=== PATIENT | male | born 1995 | race Two or more races ===

== ENCOUNTER 2018-05-20 09:48 | Emergency (ER) | payer OTHER ==
[~2018-05-20] VITALS: Ht 162.6 cm; Wt 71.0 kg
[~2018-05-20 09:48] MED LIST: IBUP400T18 PO
[2018-05-20 10:02] VITALS: BP 127/76
--- NOTE | 2018-05-20 10:25 | RAD ---
EXAM: AP, oblique and lateral views of the right knee DATE: 05/20/2018 10:09 AM INDICATION: Right knee pain x 1 day, twisted when kicking door, pt shielded COMPARISON: No Prior FINDINGS: No evidence of acute fracture or dislocation. Joint spaces are preserved without significant degenerative/proliferative change. No knee joint effusion. IMPRESSION: No evidence of acute fracture or dislocation. Electronically signed by: Hussein Delgado MD (05/20/2018 10:21 AM) [facility]
[2018-05-20] MEDS ORDERED: IBUP600T16 PO (10:34)
--- NOTE | 2018-05-20 10:34 | PHYS DOC ---
Past History Past Medical History: No Pertinent History Past Surgical History: No Surgical History Alcohol Use: Occasionally Drug Use: None Adult General Chief Complaint Chief Complaint: KNEE INJURY [facility] HPI Patient is a 22 year old male who presents with complaining of right knee pain. Patient states he tried to open a heavy metal door with his leg and felt a pop in his knee while he was at work this morning. Patient complaining of moderate pain in right knee that getting worse with bearing weight when standing up. Patient denies focal neurodeficit and other injuries. Review of Systems Review of Systems Constitutional: Denies fever or chills [] Eyes: Denies change in visual acuity, redness, or eye pain [] HENT: Denies nasal congestion or sore throat [] Respiratory: Denies cough or shortness of breath [] Cardiovascular: No additional information not addressed in HPI [] GI: Denies abdominal pain, nausea, vomiting, bloody stools or diarrhea [] : Denies dysuria or hematuria [] Musculoskeletal: Denies back pain, reports joint pain [] Integument: Denies rash or skin lesions [] Neurologic: Denies headache, focal weakness or sensory changes [] Endocrine: Denies polyuria or polydipsia [] All other systems were reviewed and found to be within normal limits, except as documented in this note. Allergies Allergies Allergies Coded Allergies Type Severity Reaction Last Updated Verified No Known Drug Allergies 03/03/16 No Physical Exam Physical Exam Constitutional: Well developed, well nourished, mild distress, non-toxic appearance. [] HENT: Normocephalic, atraumatic Eyes: PERRLA, EOMI, conjunctiva normal, no discharge. [] Neck: Normal range of motion, no tenderness, supple, no stridor. [] Cardiovascular:Heart rate regular rhythm, no murmur [] Lungs & Thorax: Bilateral breath sounds clear to auscultation [] Skin: Warm, dry, no erythema, no rash. [] Back: No tenderness, no CVA tenderness. [] Extremities: Right knee without deformity or edema or erythema, painful range of motion, no neurovascular deficit. Neurologic: Alert and oriented X 3, normal motor function, normal sensory function, no focal deficits noted. [] Psychologic: Affect normal, judgement normal, mood normal. [] Current Patient Data Vital Signs Vital Signs Date Time Temp Pulse Resp B/P (MAP) Pulse Ox O2 Delivery O2 Flow Rate FiO2 05/20/18 10:02 98.0 79 20 96 Room Air EKG EKG [] Radiology/Procedures Radiology/Procedures [address] [address] IMAGING REPORT Signed PATIENT: TRAY LAI ACCOUNT: [id number] : 1995 LOCATION: ER AGE: 22 SEX: M EXAM STATUS: PRE ER ORD. PHYSICIAN: TIERRA DELGADO MD REASON: injury PROCEDURE: KNEE RIGHT 3V EXAM: AP, oblique and lateral views of the right knee DATE: 05/20/2018 10:09 AM INDICATION: Right knee pain x 1 day, twisted when kicking door, pt shielded COMPARISON: No Prior FINDINGS: No evidence of acute fracture or dislocation. Joint spaces are preserved without significant degenerative/proliferative change. No knee joint effusion. IMPRESSION: No evidence of acute fracture or dislocation. Electronically signed by: Hussein Delgado MD (05/20/2018 10:21 AM) [facility] DICTATED AND SIGNED BY: HUSSEIN DELGADO MD DATE: 05/20/18 1019 CC: TIERRA DELGADO MD; PCP,NO ~ Course & Med Decision Making Course & Med Decision Making Pertinent Imaging studies reviewed. (See chart for details) Evaluation of patient in ER showed 22-year-old male patient with injury to right knee with unremarkable physical exam and x-ray. Plan discharge patient home with diagnosis of right knee sprain. Dragon Disclaimer Dragon Disclaimer This electronic medical record was generated, in whole or in part, using a voice recognition dictation system. Departure Departure: Impression: Primary Impression: Right knee sprain Disposition: HOME, SELF-CARE (at 1028) Condition: STABLE Referrals: PCP,DEAN (PCP) Patient Instructions: Knee Sprain Additional Instructions: Apply ice on the affected area Follow-up with your primary care physician in 3-5 days Return to ER if not getting better Scripts Ibuprofen (IBUPROFEN) 600 Mg Tablet 600 MG PO TID for pain, #20 TAB Prov: TIERRA DELGADO MD 05/20/18 TEIRRA DELGADO MD May 20, 2018 10:34
== END 2018-05-20 10:36 | disposition home or self-care (01) ==
LOC: ER 09:48
DX: S83.91XA Sprain of unspecified site of right knee, initial encounter (principal); X50.9XXA Other and unspecified overexertion or strenuous movements or postures, initial encounter; Y93.89 Activity, other specified; Y92.89 Other specified places as the place of occurrence of the external cause; Y99.8 Other external cause status
CPT/HCPCS: 73562; 99283